=== PATIENT | female | born 1965 | race American Indian/Alaskan Native ===

== ENCOUNTER 2019-07-01 08:54 | Day surgery (SDC) | payer OTHER ==
[~2019-07-01 08:54] MED LIST: SODIUM CHLORIDE 0.9% 1000 ML 1,000 ML IV SCH
[2019-07-01] MEDS ORDERED: LIDOCAINE MPF (2%) 20 MG/1 ML VIAL 5 ML ONE (09:00)
--- NOTE | 2019-07-01 09:57 | Anesthesia Day of Surgery ---
Anesthesia Day of Surgery - Day of Surgery Patient Examined: Yes Patient H&P Reviewed: Yes Patient is NPO: Yes
--- NOTE | 2019-07-01 09:57 | Anesthesia Consultation ---
Anesthesia Consult and Med Hx Date of service: 07/01/19 - Airway Anesthetic Teeth Evaluation: Good ROM Head & Neck: Adequate Mental/Hyoid Distance: Adequate Mallampati Class: Class III Intubation Access Assessment: Possibly Difficult - Pulmonary Exam CTA: Yes - Cardiac Exam Cardiac Exam: RRR - Pre-Operative Health Status ASA Pre-Surgery Classification: ASA2 Proposed Anesthetic Plan: MAC - Pulmonary Hx Smoking: No Hx Respiratory Symptoms: No - Cardiovascular System Hx Hypertension: Yes (took lisinopril this morning) Hx Heart Attack/AMI: No - Central Nervous System CVA: No - Gastrointestinal Hx Gastroesophageal Reflux Disease: Yes (w/ esophagitis; asymptomatic today) - Endocrine Hx Renal Disease: No Hx Liver Disease: No Hx Insulin Dependent Diabetes: No Hx Non-Insulin Dependent Diabetes: No Hx Thyroid Disease: No - Other Systems Hx Obesity: Yes (BMI 32) - Additional Comments Anesthesia Medical History Comments: No hx anesthetic complications.
[2019-07-01] MEDS ORDERED: fentaNYL 100 MCG/2 ML INJ ONE (11:10)
[2019-07-01] MEDS ORDERED: propofoL 200 MG/20 ML VIAL IV ONE ×2 (11:10)
[2019-07-01] MEDS ORDERED: ONDANSETRON 4 MG/2 ML INJ ONE (11:10)
--- NOTE | 2019-07-01 12:05 | Procedure Note ---
Date of procedure: 07/01/19 Pre-op diagnosis: GERD/ Colon Polyp Screening Post-op diagnosis: other (Mild to Moderate Erosive Esophagitis/ Gastric Erosion and gastritis/ Multiple Sigmoid and transverse colon Polyps/ No diverticular disease or Internal Hemorrhoid) Procedure: EGD with biopsy/ Colonoscopy with cold biopsy and Snare Polypectomy Anesthesia: [facility] [place] Surgeon: MELINA JAMES Estimated blood loss: minimal Pathology: list Specimen disposition: to lab Condition: stable Disposition: same day (Treat with PPI. Avoid aspirin and NSAID for 4 days; otherwise resume home medication. follow up in 1 to 2 weeks ([phone]).)
--- NOTE | 2019-07-01 12:12 | Operative Report ---
INDICATIONS: This is a 54-year-old -[place] female who has been having GERD symptoms. EGD was done to assess for the severity of the GERD symptoms. The procedure was done after getting informed consent with MAC anesthesia. The procedure was done in the GI lab with assistance of the GI lab team, which included RN, Shreya Tejeda, dhara Churchill and with assistance of anesthesia. Instrument was passed through the hypopharynx into the esophagus, which showed mild to moderate distal erosive esophagitis. Photo documentation and biopsy was obtained. The stomach showed gastric erosion, gastritis as well as a gastric nodule that was biopsied to rule out for H. pylori and atrophic gastritis. The pylorus was patent. The duodenum in the first and second portion appeared normal. There was minimal bleeding from the biopsy sites. ASSESSMENT: Gastroesophageal reflux disease symptoms, mild to moderate erosive esophagitis, gastric erosion, gastritis, gastric nodule. PLAN: To treat the patient with PPI, have the patient avoid aspirin and aspirin-related products for the next few days. Follow up in the office in 1-2 weeks' time. Colonoscopy will be done as part of colon polyp screening since the patient has a prior history of colon polyps and a family history of colon cancer, the patient's sister had colon cancer at a relatively young age in her 50s. JOB# [id number] MONI/SEE
[2019-07-01 12:14] VITALS: BP 105/57
--- NOTE | 2019-07-01 12:25 | Operative Report ---
PROCEDURE: Colonoscopy. INDICATIONS: A 54-year-old -[place] female with a family history of cancer. The patient's sister had colon cancer when she was in her 50s. DESCRIPTION OF PROCEDURE: Initial rectal exam was unremarkable. Instrument was passed through the rectum onto the cecum, which was identified with ileocecal valve and the appendiceal orifice. Visualization was fair. Cecum, ascending colon showed normal mucosa. There was 1-2 small polyps noted in the transverse colon, one was removed by cold snare polypectomy but was not retrieved. The remaining part of the transverse colon and the descending colon showed normal mucosa. There were multiple small polyps noted in the sigmoid, so some of which were removed by cold biopsy and 1 by snare polypectomy and the other was fulgurated using the tip of the polypectomy snare and the rectum did not show any internal hemorrhoids on the retroverted view. There was no diverticular disease and minimal bleeding from the biopsy sites. ASSESSMENT: Colon polyp screening, family history of cancer, multiple sigmoid polyps noted and removed, transverse colon that was removed but not retrieved. No internal hemorrhoids. PLAN: Plan is to have the patient avoid aspirin and aspirin-related products for the next few days. Treat the patient with PPI because of the EGD findings of erosive esophagitis, gastritis. Otherwise, resume home medications and follow up in the office in 1-2 weeks' time. Procedure was done in the GI lab with assistance of the GI lab team as mentioned above. JOB# [id number] MONI/SEE
--- NOTE | 2019-07-01 12:40 | Post Anesthesia Evaluation ---
- Post Anesthesia Evaluation Patient Participated: Yes Airway Patent: Yes Stable Respiratory Function: Yes Nausea/Vomiting: No Temp > 96.8F: Yes Pain Manageable: Yes Adequeate Hydration: Yes Anesthesia Complications: No
== END 2019-07-01 08:55 | disposition home or self-care (01) ==
LOC: GIO 08:54
DX: Z12.11 Encounter for screening for malignant neoplasm of colon (principal); K21.0 Gastro-esophageal reflux disease with esophagitis; K29.70 Gastritis, unspecified, without bleeding; I10 Essential (primary) hypertension; K63.5 Polyp of colon; E66.9 Obesity, unspecified; Z68.32 Body mass index [BMI] 32.0-32.9, adult; Z80.0 Family history of malignant neoplasm of digestive organs
CPT/HCPCS: 43239; 45380; 45385; 81025; 88305; 88342; J2405; J2704; J3010; J7030

== ENCOUNTER 2019-09-20 07:38 | Outpatient (CLI) | payer OTHER ==
--- NOTE | 2019-09-22 08:26 | Mammography Report ---
DIGITAL SCREENING MAMMOGRAM WITH CAD, 09/22/2019 INDICATION: Routine screening mammography. TECHNIQUE: Digital bilateral 2D mammography was obtained in the craniocaudal and mediolateral obliq ue projections. This examination was interpreted with the benefit of Computer-Aided Detection analysi s. COMPARISON: 11/16/2014 FINDINGS: Breast Density: There are scattered areas of fibroglandular density. There is no evidence of dominant mass, suspicious calcifications or architectural distortion in eithe r breast. No interval change. IMPRESSION: No evidence of malignancy. Follow up recommendation: Routine yearly BI-RADS Category 1: Negative. A "normal" or negative report should not discourage follow up or biopsy of a clinically significant f inding. A written summary of these findings will be mailed to the patient. The patient will be entered into a mammography reporting system which will generate a reminder letter for the patient's next appointmen t at the appropriate interval. The [employer] recommends yearly mammograms starting at age 40 and continuing as l [place] as a woman is in good health. Breast MRI is recommended for women with an approximate 20-25% or greater lifetime risk of breast cancer, including women with a strong family history of breast or ova james cancer or who have been treated for Hodgkin's disease. Signer Name: Jessica Centeno MD Signed: 09/22/2019 8:21 AM Workstation Name: [id number]
== END 2019-09-20 07:39 | disposition home or self-care (01) ==
LOC: MAMMO 07:38
PROVIDERS: ATTEND Family Medicine
DX: Z12.31 Encounter for screening mammogram for malignant neoplasm of breast (principal)
CPT/HCPCS: 77067